=== PATIENT | male | born 1985 | race Hispanic/Latino ===

== ENCOUNTER 2022-06-12 15:22 | Emergency (ER) | payer BC ==
[~2022-06-12] VITALS: Ht 180.3 cm; Wt 99.8 kg
[2022-06-12 16:45] LABS: CLARITY,URINE HAZY (CLEAR); COLOR,URINE YELLOW (YELLOW); KETONES,URINE NEGATIVE (NEGATIVE); LEUKOCYTE ESTERASE ,URINE NEGATIVE (NEGATIVE); NITRITE,URINE NEGATIVE (NEGATIVE); PROTEIN,URINE DIPSTICK NEGATIVE (NEGATIVE); RBC,URINE >50 /HPF (0-5); URINE UROBILINOGEN 0.2 mg/dL (0.2 - 1)
[2022-06-12 16:46] LABS: BACTERIA,URINE FEW /HPF; EPITHELIAL CELLS,URINE FEW /LPF
[2022-06-12] MEDS ORDERED: KETOROLAC TROMETHAMINE 30 MG/ML VIAL IM STA (17:05)
[2022-06-12] MEDS ORDERED: ONDANSETRON ODT4 MG PO (18:47)
[2022-06-12] MEDS ORDERED: FLOMAX0.4 MG PO (18:47)
[2022-06-12] MEDS ORDERED: HYDROCODON-ACE1 EA11 PO (18:49)
== END 2022-06-12 19:07 | disposition home or self-care (01) ==
LOC: ER 15:43
DX: R31.9 Hematuria, unspecified (principal); N20.2 Calculus of kidney with calculus of ureter; N50.819 Testicular pain, unspecified; E11.9 Type 2 diabetes mellitus without complications
CPT/HCPCS: 74176; 81001; 99283; J1885

== ENCOUNTER → 2022-07-18 | Day surgery (SDC) | payer BC ==
[2022-07-15 09:42] LABS: ANION GAP 19.6 mmol/L (8-16); BLOOD UREA NITROGEN 17 mg/dL (7-26); BUN/CREATININE RATIO 15 (6-25); CALCIUM 9.4 mg/dL (8.4-10.2); CARBON DIOXIDE 19 mmol/L (22-29); CHLORIDE 102 mmol/L (98-107); CREATININE, SERUM 1.15 mg/dL (0.72-1.25); GLUCOSE 339 mg/dL (74-118); POTASSIUM 3.6 mmol/L (3.5-5.1); SODIUM 137 mmol/L (136-145)
[~2022-07-18] MED LIST: CEFTRIAXONE 1 GM VIAL ONE; DEXAMETHASONE SOD PHOS INJ 4 MG/ML SDV ONE; FENTANYL CITRATE/PF 100MCG/2 ML INJ ONE; FLOMAX0.4 MG PO; HYDROCODON-ACE1 EA11 PO; LIDOCAINE HCL 2% LOCAL INJ 5 ML SDV VIAL INJ ONE; MIDAZOLAM HCL 2 MG/2 ML VIAL ONE; ONDANSETRON HCL INJ 2MG/ML 2ML 2 MG/ML VIAL ONE; ONDANSETRON ODT4 MG PO; POVIDONE IODINE 0.05% 0.05 % ML PO ONE; PROPOFOL IV EMULSION 10 MG/ML 20 ML VIAL ONE; SEVOFLURANE INHAL SOLN 250 ML PEN BTL ONE; tylenol #3 PO
[2022-07-18 08:15] VITALS: BP 116/94
== END | disposition home or self-care (01) ==
LOC: OR 06:37
PROVIDERS: ATTEND Urology
DX: N13.2 Hydronephrosis with renal and ureteral calculous obstruction (principal); R81 Glycosuria; E11.9 Type 2 diabetes mellitus without complications; Z01.810 Encounter for preprocedural cardiovascular examination; Z01.812 Encounter for preprocedural laboratory examination; Z20.822 Contact with and (suspected) exposure to COVID-19; Z68.30 Body mass index [BMI] 30.0-30.9, adult
CPT/HCPCS: 0223U; 36415 ×2; 52353; 74420; 80048; 82948; 88300; 93005; C1758; C1769; J0696; J1100; J2001; J2250; J2405; J2704; J3010